=== PATIENT | female | born 1965 | race Asian ===

== ENCOUNTER 2017-05-19 11:05 | Outpatient (CLI) | payer BC, OTHER | END 2017-05-19 23:59 | disposition home or self-care (01) | LOC: US 11:05 | DX: R22.0 Localized swelling, mass and lump, head (principal); R22.1 Localized swelling, mass and lump, neck; F45.8 Other somatoform disorders | CPT/HCPCS: 76536-TC ==

== ENCOUNTER 2017-06-07 09:11 | Outpatient (CLI) | payer BC ==
[2017-06-07 09:58] LABS: BASOPHILS % (AUTO) 0.6 % (0.0-2.0); EOSINOPHILS # (AUTO) 0.1 /CMM (0.0-0.7); EOSINOPHILS % (AUTO) 1.4 % (0.0-6.0); HEMATOCRIT 35 % (33-45); HEMOGLOBIN 11.4 g/dL (11.5-14.8); LYMPHOCYTES # (AUTO) 1.8 /CMM (0.8-4.8); LYMPHOCYTES % (AUTO) 28.5 % (20.0-44.0); MEAN CORPUSCULAR HEMOGLOBIN 28 PG (26.0-33.0); MEAN CORPUSCULAR HGB CONC 33 g/dl (31.0-36.0); MEAN CORPUSCULAR VOLUME 84 fL (82-100); MONOCYTES # (AUTO) 0.4 /CMM (0.1-1.30); MONOCYTES % (AUTO) 6.2 % (2.0-12.0); NEUTROPHILS # (AUTO) 4.1 /CMM (1.8-8.9); NEUTROPHILS % (AUTO) 63.3 % (43.0-81.0); PLATELET COUNT (AUTO) 316 /CMM (150-450); RDW COEFFICIENT OF VARIATION 13.7 (11.5-15.0); RED BLOOD CELL COUNT(AUTO) 4.13 MIL/uL (4.0-5.2); WHITE BLOOD COUNT (AUTO) 6.5 K/uL (4.3-11.0)
[2017-06-07 10:03] LABS: APPEARANCE,URINE CLEAR (CLEAR); BILIRUBIN,URINE NEGATIVE (NEGATIVE); BLOOD, URINE TRACE-INTA Ery/uL (NEGATIVE); COLOR,URINE YELLOW (YELLOW); KETONES,URINE NEGATIVE (NEGATIVE); LEUKOCYTE ESTERASE ,URINE NEGATIVE (NEGATIVE); NITRITE, URINE NEGATIVE (NEGATIVE); PROTEIN,URINE NEGATIVE (NEGATIVE); UGLUCOSE NEGATIVE (NEGATIVE); UROBILINOGEN,URINE 0.2 EU/dL (0.2)
[2017-06-07 10:17] LABS: BACTERIA,URINE None seen /HPF (None Seen); RBC,URINE 0-2 /HPF (0-2); SQUAMOUS EPITHELIAL CELL,UR Few /HPF (None Seen); WBC,URINE NONE SEEN /HPF (0-3)
[2017-06-07 10:22] LABS: ALBUMIN 3.8 g/dL (3.4-5.0); BILIRUBIN,TOTAL 0.6 mg/dL (0.2-1.0); CALCIUM, SERUM 9.3 mg/dL (8.5-10.1); CREATININE 0.6 mg/dL (0.6-1.3)
[2017-06-07 10:31] LABS: THYROID STIMULATING HORMONE 1.054 uIU/mL (0.358-3.74)
== END 2017-06-07 23:59 | disposition home or self-care (01) ==
LOC: LAB 09:11
PROVIDERS: ATTEND Family Medicine
DX: Z11.59 Encounter for screening for other viral diseases (principal); E55.9 Vitamin D deficiency, unspecified; E78.00 Pure hypercholesterolemia, unspecified
CPT/HCPCS: 36415; 80053-TC; 80061-TC; 81000-TC; 82306; 84439-TC; 84443-TC; 85025-TC; 86803

== ENCOUNTER 2018-01-26 08:01 | Outpatient (CLI) | payer BC ==
[2018-01-27 08:08] LABS: FOLLICLE STIMULATION HORMONE 54.3 mIU/mL (.)
== END 2018-01-26 23:59 | disposition home or self-care (01) ==
LOC: LAB 08:01
PROVIDERS: ATTEND Obstetrics & Gynecology
DX: N92.6 Irregular menstruation, unspecified (principal)
CPT/HCPCS: 36415; 82670; 83001

== ENCOUNTER 2018-08-28 08:21 | Outpatient (CLI) | payer BC ==
[2018-08-28 09:11] LABS: BASOPHILS % (AUTO) 0.6 % (0.0-2.0); EOSINOPHILS % (AUTO) 1.8 % (0.0-6.0); HEMATOCRIT 37 % (33-45); HEMOGLOBIN 12.3 g/dL (11.5-14.8); LYMPHOCYTES # (AUTO) 1.7 /CMM (0.8-4.8); LYMPHOCYTES % (AUTO) 34.7 % (20.0-44.0); MEAN CORPUSCULAR HGB CONC 33 g/dl (31.0-36.0); MEAN CORPUSCULAR VOLUME 85 fL (82-100); MONOCYTES # (AUTO) 0.3 /CMM (0.1-1.30); MONOCYTES % (AUTO) 6.8 % (2.0-12.0); NEUTROPHILS # (AUTO) 2.8 /CMM (1.8-8.9); NEUTROPHILS % (AUTO) 56.1 % (43.0-81.0); PLATELET COUNT (AUTO) 301 /CMM (150-450); RED BLOOD CELL COUNT(AUTO) 4.41 MIL/uL (4.0-5.2)
[2018-08-28 09:23] LABS: ALBUMIN 4.1 g/dL (3.4-5.0); BILIRUBIN,TOTAL 0.5 mg/dL (0.2-1.0); CALCIUM, SERUM 9.1 mg/dL (8.5-10.1); CREATININE 0.7 mg/dL (0.6-1.3); POTASSIUM 4.1 mmol/L (3.5-5.1); TOTAL PROTEIN, SERUM 8.2 g/dL (6.4-8.2)
[2018-08-28 09:30] LABS: THYROID STIMULATING HORMONE 1.127 uIU/mL (0.358-3.74)
[2018-08-28 09:35] LABS: APPEARANCE,URINE CLEAR (CLEAR); BILIRUBIN,URINE NEGATIVE (NEGATIVE); BLOOD, URINE 1+ Ery/uL (NEGATIVE); COLOR,URINE YELLOW (YELLOW); KETONES,URINE NEGATIVE (NEGATIVE); LEUKOCYTE ESTERASE ,URINE NEGATIVE (NEGATIVE); NITRITE, URINE NEGATIVE (NEGATIVE); PROTEIN,URINE NEGATIVE (NEGATIVE); UGLUCOSE NEGATIVE (NEGATIVE); UROBILINOGEN,URINE 0.2 EU/dL (0.2)
[2018-08-28 09:47] LABS: BACTERIA,URINE Rare /HPF (None Seen); WBC,URINE 0-2 /HPF (0-3)
== END 2018-08-28 23:59 | disposition home or self-care (01) ==
LOC: LAB 08:21
PROVIDERS: ATTEND Family Medicine
DX: Z00.01 Encounter for general adult medical examination with abnormal findings (principal); E55.9 Vitamin D deficiency, unspecified
CPT/HCPCS: 36415; 80053-TC; 80061-TC; 81000-TC; 82306; 84439-TC; 84443-TC; 85025-TC

== ENCOUNTER 2020-01-14 08:51 | Outpatient (CLI) | payer BC ==
[2020-01-14 09:58] LABS: BASOPHILS % (AUTO) 0.4 % (0.0-2.0); EOSINOPHILS % (AUTO) 2.2 % (0.0-6.0); HEMATOCRIT 39 % (33-45); HEMOGLOBIN 12.4 g/dL (11.5-14.8); LYMPHOCYTES # (AUTO) 1.9 /CMM (0.8-4.8); LYMPHOCYTES % (AUTO) 31.5 % (20.0-44.0); MEAN CORPUSCULAR HGB CONC 32 g/dl (31.0-36.0); MEAN CORPUSCULAR VOLUME 85 fL (82-100); MONOCYTES # (AUTO) 0.5 /CMM (0.1-1.30); MONOCYTES % (AUTO) 8.3 % (2.0-12.0); NEUTROPHILS # (AUTO) 3.4 /CMM (1.8-8.9); NEUTROPHILS % (AUTO) 57.6 % (43.0-81.0); PLATELET COUNT (AUTO) 255 /CMM (150-450); RED BLOOD CELL COUNT(AUTO) 4.58 MIL/uL (4.0-5.2); WHITE BLOOD COUNT (AUTO) 5.9 K/uL (4.3-11.0)
[2020-01-14 10:05] LABS: APPEARANCE,URINE CLEAR (CLEAR); BILIRUBIN,URINE NEGATIVE (NEGATIVE); BLOOD, URINE TRACE-INTA Ery/uL (NEGATIVE); COLOR,URINE YELLOW (YELLOW); KETONES,URINE NEGATIVE (NEGATIVE); LEUKOCYTE ESTERASE ,URINE NEGATIVE (NEGATIVE); NITRITE, URINE NEGATIVE (NEGATIVE); PH,URINE 6.5 (5.0-8.0); PROTEIN,URINE NEGATIVE (NEGATIVE); UGLUCOSE NEGATIVE (NEGATIVE); UROBILINOGEN,URINE 0.2 EU/dL (0.2)
[2020-01-14 10:07] LABS: BACTERIA,URINE None seen /HPF (None Seen); SQUAMOUS EPITHELIAL CELL,UR Few /HPF (None Seen); WBC,URINE 0-2 /HPF (0-3)
[2020-01-14 10:23] LABS: CHOLESTEROL 153 mg/dL (<200); HDL CHOLESTEROL 52 mg/dL (40-60); LDL 79 mg/dL (0-99); THYROID STIMULATING HORMONE < 0.007 uIU/mL (0.358-3.74); TRIGLYCERIDES 142 mg/dL (30-150)
[2020-01-14 10:30] LABS: ALANINE AMINOTRANSFERASE 36 U/L (12-78); ALBUMIN 3.9 g/dL (3.4-5.0); ALKALINE PHOSPHATASE 52 U/L (46-116); ASPARTATE AMINOTRANSFERASE 20 U/L (15-37); BILIRUBIN,TOTAL 0.5 mg/dL (0.2-1.0); CALCIUM, SERUM 9.8 mg/dL (8.5-10.1); CARBON DIOXIDE 29 mmol/L (21-32); CHLORIDE 105 mmol/L (98-107); CREATININE 0.6 mg/dL (0.6-1.3); GLUCOSE 99 mg/dL (74-106); POTASSIUM 4.5 mmol/L (3.5-5.1); SODIUM SERUM 143 mmol/L (136-145); TOTAL PROTEIN, SERUM 8.2 g/dL (6.4-8.2); UREA NITROGEN, BLOOD 10 mg/dL (7-18)
[2020-01-15 08:06] LABS: T3, FREE 6.6 pg/mL (2.0-4.4)
== END 2020-01-14 23:59 | disposition home or self-care (01) ==
LOC: LAB 08:51
PROVIDERS: ATTEND Family Medicine
DX: E05.90 Thyrotoxicosis, unspecified without thyrotoxic crisis or storm (principal); R31.9 Hematuria, unspecified
CPT/HCPCS: 36415; 80053-TC; 80061-TC; 81000-TC; 82306; 84439-TC; 84443-TC; 84481; 85025-TC; 86376; 86800; 87086-TC

== ENCOUNTER 2020-01-23 13:28 | Outpatient (CLI) | payer BC ==
[2020-01-23 14:10] LABS: APPEARANCE,URINE CLEAR (CLEAR); BILIRUBIN,URINE NEGATIVE (NEGATIVE); BLOOD, URINE TRACE-INTA Ery/uL (NEGATIVE); COLOR,URINE YELLOW (YELLOW); KETONES,URINE NEGATIVE (NEGATIVE); LEUKOCYTE ESTERASE ,URINE NEGATIVE (NEGATIVE); NITRITE, URINE NEGATIVE (NEGATIVE); PROTEIN,URINE NEGATIVE (NEGATIVE); UGLUCOSE NEGATIVE (NEGATIVE); UROBILINOGEN,URINE 0.2 EU/dL (0.2)
[2020-01-23 17:39] LABS: BACTERIA,URINE None seen /HPF (None Seen); WBC,URINE 0-2 /HPF (0-3)
[2020-01-23 17:40] LABS: SQUAMOUS EPITHELIAL CELL,UR 0-2 /HPF (None Seen)
== END 2020-01-23 23:59 | disposition home or self-care (01) ==
LOC: LAB 13:28
PROVIDERS: ATTEND Family Medicine
DX: N39.0 Urinary tract infection, site not specified (principal); R31.9 Hematuria, unspecified
CPT/HCPCS: 81000-TC

== ENCOUNTER 2020-01-27 11:04 | Outpatient (CLI) | payer BC | END 2020-01-27 23:59 | disposition home or self-care (01) | LOC: US 11:04 | PROVIDERS: ATTEND Family Medicine | DX: R31.9 Hematuria, unspecified (principal) | CPT/HCPCS: 76770-TC ==

== ENCOUNTER 2020-02-21 11:13 | Outpatient (CLI) | payer BC ==
[2020-02-21] MEDS ORDERED: IV NS 0.9% 250 ML IV ONE (11:51)
[2020-02-21] MEDS ORDERED: CT SWABBABLE VALVE TRANS SET 1 EA INFUS.SET MC ONE (11:51)
[2020-02-21] MEDS ORDERED: IOHEXOL-300 100 ML VIAL IV ONE (11:51)
== END 2020-02-21 23:59 | disposition home or self-care (01) ==
LOC: CT 11:13
PROVIDERS: ATTEND Family Medicine
DX: N20.0 Calculus of kidney (principal); I25.10 Atherosclerotic heart disease of native coronary artery without angina pectoris; K57.10 Diverticulosis of small intestine without perforation or abscess without bleeding; I70.0 Atherosclerosis of aorta; R31.9 Hematuria, unspecified; M47.816 Spondylosis without myelopathy or radiculopathy, lumbar region
CPT/HCPCS: 74178; J7050; Q9967

== ENCOUNTER 2020-03-18 08:44 | Outpatient (CLI) | payer BC ==
[2020-03-18 09:41] LABS: FREE T4 (FREE THYROXINE) 0.91 ng/dL (0.76-1.46); THYROID STIMULATING HORMONE 1.445 uIU/mL (0.358-3.74)
[2020-03-19 09:08] LABS: T3, FREE 2.9 pg/mL (2.0-4.4)
== END 2020-03-18 23:59 | disposition home or self-care (01) ==
LOC: LAB 08:44
DX: E05.00 Thyrotoxicosis with diffuse goiter without thyrotoxic crisis or storm (principal)
CPT/HCPCS: 36415; 83520; 84439-TC; 84443-TC; 84481

== ENCOUNTER 2020-04-28 10:40 | Outpatient (CLI) | payer BC ==
[2020-04-28 12:20] LABS: FREE T4 (FREE THYROXINE) 1.05 ng/dL (0.76-1.46); THYROID STIMULATING HORMONE 3.014 uIU/mL (0.358-3.74)
[2020-04-30 17:06] LABS: H. PYLORI AB IgA <9.0 units (0.0-8.9)
== END 2020-04-28 23:59 | disposition home or self-care (01) ==
LOC: LAB 10:40
PROVIDERS: ATTEND Family Medicine
DX: I10 Essential (primary) hypertension (principal); E05.00 Thyrotoxicosis with diffuse goiter without thyrotoxic crisis or storm; E06.3 Autoimmune thyroiditis; K21.9 Gastro-esophageal reflux disease without esophagitis
CPT/HCPCS: 36415; 84436; 84439-TC; 84443-TC; 86677

== ENCOUNTER 2020-06-04 12:41 | Outpatient (CLI) | payer BC | END 2020-06-04 23:59 | disposition home or self-care (01) | LOC: MRI 12:41 | PROVIDERS: ATTEND Family Medicine | DX: M50.33 Other cervical disc degeneration, cervicothoracic region (principal); M51.24 Other intervertebral disc displacement, thoracic region; M48.02 Spinal stenosis, cervical region; M51.44 Schmorl's nodes, thoracic region; M25.78 Osteophyte, vertebrae | CPT/HCPCS: 72141-TC; 72146-TC ==

== ENCOUNTER 2020-07-01 08:40 | Outpatient (CLI) | payer BC ==
[2020-07-01 09:33] LABS: BASOPHILS % (AUTO) 0.6 % (0.0-2.0); EOSINOPHILS % (AUTO) 1.1 % (0.0-6.0); HEMATOCRIT 36 % (33-45); HEMOGLOBIN 11.9 g/dL (11.5-14.8); LYMPHOCYTES # (AUTO) 1.5 /CMM (0.8-4.8); LYMPHOCYTES % (AUTO) 31.2 % (20.0-44.0); MEAN CORPUSCULAR HGB CONC 33 g/dl (31.0-36.0); MEAN CORPUSCULAR VOLUME 85 fL (82-100); MONOCYTES # (AUTO) 0.3 /CMM (0.1-1.30); MONOCYTES % (AUTO) 5.9 % (2.0-12.0); NEUTROPHILS # (AUTO) 2.9 /CMM (1.8-8.9); NEUTROPHILS % (AUTO) 61.2 % (43.0-81.0); PLATELET COUNT (AUTO) 278 /CMM (150-450); RED BLOOD CELL COUNT(AUTO) 4.29 MIL/uL (4.0-5.2); WHITE BLOOD COUNT (AUTO) 4.7 K/uL (4.3-11.0)
[2020-07-01 10:01] LABS: FREE T4 (FREE THYROXINE) 1.04 ng/dL (0.76-1.46); THYROID STIMULATING HORMONE 2.981 uIU/mL (0.358-3.74)
[2020-07-01 10:51] LABS: ALBUMIN 4.2 g/dL (3.4-5.0); BILIRUBIN,TOTAL 0.5 mg/dL (0.2-1.0); CALCIUM, SERUM 9.7 mg/dL (8.5-10.1); CREATININE 0.7 mg/dL (0.6-1.3); POTASSIUM 4.3 mmol/L (3.5-5.1); TOTAL PROTEIN, SERUM 8.4 g/dL (6.4-8.2)
[2020-07-01 12:46] LABS: BILIRUBIN,URINE NEGATIVE (NEGATIVE); COLOR,URINE YELLOW (YELLOW); LEUKOCYTE ESTERASE ,URINE NEGATIVE (NEGATIVE); NITRITE, URINE NEGATIVE (NEGATIVE); PH,URINE 6.5 (5.0-8.0); PROTEIN,URINE NEGATIVE (NEGATIVE); UGLUCOSE NEGATIVE (NEGATIVE); UROBILINOGEN,URINE 0.2 EU/dL (0.2)
[2020-07-01 13:38] LABS: BACTERIA,URINE Rare /HPF (None Seen); RBC,URINE 0-3 /HPF (0-2); SQUAMOUS EPITHELIAL CELL,UR Few /HPF (None Seen); WBC,URINE 0-3 /HPF (0-3)
[2020-07-02 18:25] LABS: T3, FREE 2.9 pg/mL (2.0-4.4); THYROID PEROXIDASE (TPO) AB <9 IU/mL (0-34)
== END 2020-07-01 23:59 | disposition home or self-care (01) ==
LOC: LAB 08:40
PROVIDERS: ATTEND Family Medicine
DX: S16.1XXA Strain of muscle, fascia and tendon at neck level, initial encounter (principal); I10 Essential (primary) hypertension; E55.9 Vitamin D deficiency, unspecified; N20.0 Calculus of kidney; E05.00 Thyrotoxicosis with diffuse goiter without thyrotoxic crisis or storm; R73.03 Prediabetes; R20.9 Unspecified disturbances of skin sensation; X58.XXXA Exposure to other specified factors, initial encounter; Y93.89 Activity, other specified; Y92.89 Other specified places as the place of occurrence of the external cause; Y99.8 Other external cause status
CPT/HCPCS: 36415; 80053-TC; 80061-TC; 81001; 82306; 82607-TC; 84207; 84439-TC; 84443-TC; 84481; 85025-TC; 86376; 86800

== ENCOUNTER 2020-12-15 09:38 | Outpatient (CLI) | payer BC ==
[2020-12-15 10:08] LABS: ALBUMIN 4.2 g/dL (3.4-5.0); BILIRUBIN,TOTAL 0.5 mg/dL (0.2-1.0); CALCIUM, SERUM 9.4 mg/dL (8.5-10.1); CREATININE 0.7 mg/dL (0.6-1.3); POTASSIUM 4.4 mmol/L (3.5-5.1); TOTAL PROTEIN, SERUM 8.2 g/dL (6.4-8.2)
[2020-12-15 10:16] LABS: THYROID STIMULATING HORMONE 1.547 uIU/mL (0.358-3.74)
[2020-12-15 10:25] LABS: BASOPHILS % (AUTO) 0.7 % (0.0-2.0); EOSINOPHILS % (AUTO) 1.1 % (0.0-6.0); HEMATOCRIT 36 % (33-45); HEMOGLOBIN 11.8 g/dL (11.5-14.8); LYMPHOCYTES # (AUTO) 1.6 K/uL (0.8-4.8); LYMPHOCYTES % (AUTO) 35.5 % (20.0-44.0); MEAN CORPUSCULAR HGB CONC 33 g/dl (31.0-36.0); MEAN CORPUSCULAR VOLUME 86 fL (82-100); MONOCYTES # (AUTO) 0.3 K/uL (0.1-1.30); MONOCYTES % (AUTO) 6.4 % (2.0-12.0); NEUTROPHILS # (AUTO) 2.5 K/uL (1.8-8.9); NEUTROPHILS % (AUTO) 56.3 % (43.0-81.0); PLATELET COUNT (AUTO) 265 K/uL (150-450); RED BLOOD CELL COUNT(AUTO) 4.19 MIL/uL (4.0-5.2); WHITE BLOOD COUNT (AUTO) 4.4 K/uL (4.3-11.0)
[2020-12-16 04:06] LABS: FOLLICLE STIMULATION HORMONE 74.1 mIU/mL (.); LUTEINIZING HORMONE 41.9 mIU/mL (.); PROLACTIN 9.9 ng/mL (4.8-23.3)
== END 2020-12-15 23:59 | disposition home or self-care (01) ==
LOC: LAB 09:38
PROVIDERS: ATTEND Family Medicine
DX: I10 Essential (primary) hypertension (principal); N20.0 Calculus of kidney; E05.00 Thyrotoxicosis with diffuse goiter without thyrotoxic crisis or storm; Z00.01 Encounter for general adult medical examination with abnormal findings
CPT/HCPCS: 36415; 80053-TC; 80061-TC; 82306; 82670; 83001; 83002; 84146; 84439-TC; 84443-TC; 85025-TC